=== PATIENT | male | born 1995 | race Caucasian/White ===

== ENCOUNTER 2019-02-02 21:54 | Emergency (ER) | payer BC ==
[~2019-02-02] VITALS: Ht 190.5 cm; Wt 109.1 kg
[2019-02-02 22:04] VITALS: TEMP 97.9
[2019-02-03] MEDS ORDERED: CEPHALEXIN500 M1 PO (01:26)
[2019-02-03 01:55] VITALS: BP 123/93; PULSE 62
== END 2019-02-03 01:56 | disposition home or self-care (01) ==
LOC: COL.ER 21:54
DX: S60.551A Superficial foreign body of right hand, initial encounter (principal); Z23 Encounter for immunization; Y24.0XXA Airgun discharge, undetermined intent, initial encounter; Y92.009 Unspecified place in unspecified non-institutional (private) residence as the place of occurrence of the external cause

== ENCOUNTER 2021-06-08 09:39 | Emergency (ER) | payer BC ==
[~2021-06-08] VITALS: Ht 188 cm; Wt 109.1 kg
[~2021-06-08 09:39] MED LIST: CEPHALEXIN500 M1 PO
[2021-06-08 10:20] VITALS: TEMP 101.5
[2021-06-08] MEDS ORDERED: ZOFRAN ODT4 MG PO ×3 (11:16→11:30)
[2021-06-08 11:24] VITALS: BP 123/75; PULSE 91
== END 2021-06-08 11:34 | disposition home or self-care (01) ==
LOC: COL.ER 09:39
DX: U07.1 COVID-19 (principal)